=== PATIENT | female | born 1990 | race Caucasian/White ===

== ENCOUNTER 2025-04-27 08:42 | Outpatient (RCR) | payer BC, SELFPAY | END 2025-04-27 09:02 | disposition home or self-care (01) | LOC: HO.PHPA 08:42 | PROVIDERS: Visit Provider Psychiatry & Neurology Psychiatry | DX: F31.9 Bipolar disorder, unspecified (principal) ==

== ENCOUNTER 2025-05-11 08:20 | Outpatient (REF) | payer BC, SELFPAY ==
--- OUTSIDE RECORDS SUMMARY | 2025-04-17 07:00 | XMS_ITS ---
Author Organization [address] [id number] Care Team Providers Care Conveyor Maintenance Mechanic Name Role Phone Basim Loving Unavailable [phone] REASON FOR VISIT establish Encounters Encounter Location Date Provider Diagnosis [address] [id number] 04/17/2025 Basim Loving Plan Of Treatment No Information Progress Notes * Cortney PARSONSDOB: [birth year] (34 yo F)Acc No.[id number]:04/17/2025 Progress Notes Patient: Vandana EYN Cortney Provider: Lizbeth Loving ND :1990 A ge:34 Y S ex:Female Date:04/17/2025 Phone: Address:[address] [place], [place] [id number] Subjective: * Chief Complaints: * 1 . Establish. * Medical History: Objective: * Vitals: Assessment: Plan: * Treatment: * * Electronic signature of Artem Loving ND on 05/11/2025 at 08:38 AM EST Sign off status: Pending * Provider: Lizbeth Loving ND Date: 06/17/2024 Generated for Lauren lopez/Natanael/Mary on: 07/12/2024 08:38 AM EST
--- NOTE | 2025-05-11 08:26 | ECG_ITS ---
Test Reason : qtc check Blood Pressure : */* mmHG Vent. Rate : 79 BPM Atrial Rate : 79 BPM P-R Int : 150 ms QRS Dur : 80 ms QT Int : 382 ms P-R-T Axes : 58 45 38 degrees QTcB Int : 438 ms Normal sinus rhythm Normal ECG No previous ECGs available Referred By: Aylin Delgadillo Electronically Signed By: Hernandez Shaikh
--- OUTSIDE RECORDS SUMMARY | 2025-05-11 08:38 | XMS_ITS | Patient Health Record ---
Author Organization [facility] [address] [place], [place] [phone] Care Team Providers Care Cane Flume Watcher Name Role Phone Basim Loving Unavailable [phone] Mesha Briones Unavailable [phone] Reason For Referral No Information Encounters Encounter Location Date Provider Diagnosis [address] [id number] 02/07/2025 Mesha Briones Plan Of Treatment No Information Insurance Providers Payer Name Payer Address Payer Phone Subscriber Number Group Number Insured Name Patient Relationship to Insured Coverage Start Date Coverage End Date [facility] [address] [place], [place] [phone] [id number] Jenise Carlos Self - patient is the insured
[2025-05-11 08:52] LABS: MANUAL DIFF FLAG NO
[2025-05-11 09:10] LABS: Hematocrit 41.8 % (37.0-47.0); Hemoglobin 14.2 g/dl (12.0-16.0); Imm Gran Abs Auto 0.02 X10*3/uL (0.00-0.03); Imm Gran Pct Auto 0.4 % (0.0-0.4); Lymphocytes Absolute Auto 1.2 X10*3/uL (1.2-4.9); Mean Corpuscular HGB Conc 34.0 g/dl (31.0-35.0); Mean Corpuscular Hemoglobin 31.3 pg (27.0-33.0); Mean Corpuscular Volume 92.1 fL (80.0-98.0); NRBC Abs Auto 0.000 X10*3/uL (0.0-0.012); NRBC Pct Auto 0.0 /100WBC (0.0-0.2); Platelet Count 320 X10*3/uL (160-400); Red Blood Count 4.54 X10*6/uL (4.20-5.50); White Blood Count 5.3 X10*3/uL (4.8-10.8)
[2025-05-11 10:00] LABS: Alanine Aminotransferase 17 U/L (0-31); Albumin Level 4.2 g/dL (3.5-5.0); Alkaline Phosphatase 72 U/L (39-117); Anion Gap 10 (12-20); Aspartate Amino Transferase 21 U/L (5-31); Blood Urea Nitrogen 10 mg/dL (9-16); Calcium 8.9 mg/dL (8.4-10.2); Carbon Dioxide 24 mmol/L (22-29); Chloride 109 mmol/L (96-108); Estimated Glomerular Filt Rate > 60; Iron 90 mcg/dL (30-160); Magnesium 2.0 mg/dL (1.6-2.6); Percent Iron Saturation 29 % (15-50); Potassium 4.0 mmol/L (3.3-5.1); Sodium 139 mmol/L (135-145); Total Iron Binding Capacity 315 mcg/dL (228-428); Total Protein 6.8 g/dL (6.5-8.0); Unsaturated Iron Binding 225 ug/dL
[2025-05-11 10:07] LABS: Lithium 0.56 mmol/L (0.60-1.20)
[2025-05-11 10:17] LABS: Free T4 (Free Thyroxine) 0.82 ng/dL (0.71-1.85); Thyroid Stimulating Hormone 1.20 uIU/mL (0.32-4.0)
[2025-05-11 10:42] LABS: Folate 12.5 ng/mL (> or = 4.0); Vitamin B12 615 pg/mL (200-900)
== END 2025-05-11 08:21 | disposition home or self-care (01) ==
LOC: HO.LAB 08:20
PROVIDERS: Visit Provider Psychiatry & Neurology Psychiatry
DX: F39 Unspecified mood [affective] disorder (principal); Z13.1 Encounter for screening for diabetes mellitus; Z13.0 Encounter for screening for diseases of the blood and blood-forming organs and certain disorders involving the immune mechanism; Z13.6 Encounter for screening for cardiovascular disorders; Z13.21 Encounter for screening for nutritional disorder
CPT/HCPCS: 36415; 80053; 80178; 82306; 82607; 82746; 83036; 83090; 83540; 83735; 84425; 84439; 84443; 85025; 93005

== ENCOUNTER → 2025-05-11 08:26 | Outpatient (BNV) | payer BC, SELFPAY | PROVIDERS: Visit Provider Internal Medicine Cardiovascular Disease | DX: Z13.6 Encounter for screening for cardiovascular disorders (principal) | CPT/HCPCS: 93010 ==

== ENCOUNTER 2025-05-12 15:18 | Outpatient (REF) | payer BC, SELFPAY ==
--- OUTSIDE RECORDS SUMMARY | 2025-04-17 07:00 | XMS_ITS ---
Author Organization [address] [id number] Care Team Providers Care Manager Community Outreach Name Role Phone Basim Loving Unavailable [phone] REASON FOR VISIT establish Encounters Encounter Location Date Provider Diagnosis [address] [id number] 04/17/2025 Basim Loving Plan Of Treatment No Information Progress Notes * Cortney PARSONSDOB: [birth year] (34 yo F)Acc No.[id number]:04/17/2025 Progress Notes Patient: Vandana YEN Cortney Provider: Lizbeth Loving ND :1990 A ge:34 Y S ex:Female Date:04/17/2025 Address:[address] [place], [place] [id number] Subjective: * Chief Complaints: * 1 . Establish. * Medical History: Objective: * Vitals: Assessment: Plan: * Treatment: * * Electronic signature of Artem Loving ND on 05/12/2025 at 04:27 PM EST Sign off status: Pending * Provider: Lizbeth Loving ND Date: 06/17/2024 Generated for Lauren lopez/Natanael/Mary on: 07/13/2024 04:27 PM EST
[2025-05-12 15:21] LABS: UPreg QC Valid YES
--- OUTSIDE RECORDS SUMMARY | 2025-05-12 16:27 | XMS_ITS | Patient Health Record ---
Author Organization [facility] [address] [place], [place] [phone] Care Team Providers Care Fish Agent Name Role Phone Basim Loving Unavailable [phone] Mesha Briones Unavailable [phone] Reason For Referral No Information Encounters Encounter Location Date Provider Diagnosis [address] [id number] 02/07/2025 Mesha Briones Plan Of Treatment No Information Insurance Providers Payer Name Payer Address Payer Phone Subscriber Number Group Number Insured Name Patient Relationship to Insured Coverage Start Date Coverage End Date [facility] [address] [place], [place] [phone] [id number] Cortney Carlos Self - patient is the insured
--- OUTSIDE RECORDS SUMMARY | 2025-05-12 16:27 | XMS_ITS | Clinical Summary ---
Author Organization [facility] Address [address] [facility] [address] [place] [address] Phone Care Team Providers Care Wage Hand Name Role Phone Pcp, Unknown Primary Care Provider Unavailabl e Allergies Active Allergy Reactions Criticality Noted Date Comments Haloperidol 04/03/2025 Nsaids (Non-Steroidal Anti-I nflammatory Drug) 04/03/2025 Medications clonazePAM (KLONOPIN) 1 MG tablet Take 2 mg by mouth daily. Taking two 1 mg tablets daily 02/07/2025 Active venlafaxine (EFFEXOR-XR) 37.5 MG 24 hr capsule Take 1 capsule by mouth every morning. 02/27/2025 Active lithium carbonate 600 mg capsule Take 1,200 mg by mouth nightly at bedtime. Taking two capsules 1200 mg total nightly 02/21/2025 Active lithium carbonate 300 mg tablet Take 600 mg by mouth nightly at bedtime. 03/11/2025 Active Active Problems Problem Noted Date Diagnosed Date Mental health problem 04/03/2025 Encounters Date Type Department Care Team Description 04/03/2025 2:43 PM EST - 04/05/2025 1:12 PM EST Hospital Encounter [facility] [address] [place] [address] Keo Dong MD Steinberg, MD Nati Prakash, MD Bong Cedillo, MD Duncan Mccann Olyn Amanda, MD Noone, Caleb J, MD Discharge Disposition: [facility] from Last 3 Months Social History Tobacco Use Types Packs/Day Years Used Date Smoking Tobacco: Never Assessed Education Answer Date Recorded Are you interested in more education? Not on libby e 04/03/2025 Are you concerned about learning? Not on file 04/03/2025 No 04/03/2025 No 04/03/2025 Digital Access Answer Date Recorded No 04/03/2025 No 04/03/2025 Reliable internet access at home? Not on file 04/03/2025 Device with a working camera? Not on file Intimate Partner Violence Answer Date R ecorded Are you denied basic needs s uch as food, clothing, or medical care? Deferred 04/03/2025 In the past 12 months have y ou been in a relationship with a person who hurts, threatens, or tries to control you? Deferred 04/03/2025 Are you denied basic needs s uch as food, clothing, or medical care? Deferred 04/03/2025 In the past 12 months have y ou been in a relationship with a person who hurts, threatens, or tries to control you? Deferred 04/03/2025 Comments Unknown Sex and Gender Information Value Date Recorded Sex Assigned at Not on file Legal Sex Female 2:40 PM EST Gender Identity Not on file Sexual Orientation Not on file Last Filed Vital Signs Vital Sign Reading Time Taken Comments Blood Pressure 114/75 04/05/2025 8:51 AM EST Pulse 66 04/05/2025 8:51 AM EST Temperature 36.6 C (97.9 F) 04/05/2025 8:51 AM EST Respiratory Rate 17 04/05/2025 8:51 AM EST Oxygen Saturation 99% 04/05/2025 8:51 AM EST Inhaled Oxygen Concentration - - Weight - - Height - - Body Mass Index - - Plan of Treatment Health Maintenance Due Date Last Done Comments Adult Td,Tdap Booster 1991 TSH LEVEL 1991 DEPRESSION SCREENING 2003 SMOKING Hx and SMOKELESS TOB ACCO SCREENING 2004 HEPATITIS C SCREENING 2009 HIV ONE-TIME SCREENING (18-6 5 YEARS) 2009 PAP SMEAR 2012 INFLUENZA VACCINE (#1) 2024 COVID-19 VACCINE ( - 2024-2 6 season) 2025 CREATININE LEVEL 04/03/2026 04/03/2025 LITHIUM LEVEL 04/03/2026 04/03/2025 HEPATITIS A VACCINES Aged Out No long er eligible based on patient's age to complete this topic HIB VACCINES Aged Out No longer eligi ble based on patient's age to complete this topic MENINGOCOCCAL VACCINES (ACWY) Aged Out No longer eligible based on patient's age to complete this topic MENINGOCOCCAL VACCINES (B) Aged Out N o longer eligible based on patient's age to complete this topic PNEUMOCOCCAL VACCINES (0-49 years) Aged Out No longer eligible based on patient's age to complete this topic Medical Devices Not on file Procedures Procedure Name Priority Date/Time Associated Diagnosis Comments CBC AND DIFFERENTIAL STAT 04/03/2025 4:41 PM EST ACETAMINOPHEN LEVEL STAT 04/03/2025 4 :41 PM EST SALICYLATES STAT 04/03/2025 4:41 PM EST LITHIUM LEVEL STAT 04/03/2025 4:41 PM EST HCG, SERUM QUALITATIVE STAT 4:41 PM EST ETHANOL, BLOOD STAT 04/03/2025 4:41 PM EST LFTS (HEPATIC PANEL) STAT 04/03/2025 4:41 PM EST BASIC METABOLIC PANEL (BMP) STAT 04/03/2025 4:41 PM EST CBC AND DIFFERENTIAL STAT 04/03/2025 4:41 PM EST TOXICOLOGY SCREEN, URINE STAT 04/03/2025 4:27 PM EST from Last 3 Months Results * Ethanol, Blood (04/03/2025 4:41 PM EST) Ethanol <10 Negative; <11 mg/dL 04/03/2025 5:25 PM EST [facility] Blood (Blood) Venipuncture / Unknown 04/03/2025 4:41 PM EST 04/03/2025 4:50 PM EST us Beth Song MD LAB BLOOD BKR ORDERABLES Final Result [address] [address] * Human Chorionic Gonadotropin (HCG), Qualitative, Blood (04/03/2025 4:41 PM EST) Pathologist [facility] hCG Qualitative Negative Negative 6:16 PM [facility] Blood (Blood) Venipuncture / Unknown 04/03/2025 4:41 PM EST 04/03/2025 4:50 PM EST Beth Song MD LAB BLOOD BKR ORDERABLES Final Result Performing Organization Address [facility]/ZIP Co de Phone Number [address] [address] * (ABNORMAL) CBC and Differential (04/03/2025 4:41 PM EST) [facility] WBC 10.59 4.00 - 11.00 K/uL 04/03/2025 4:58 PM [facility] RBC 4.27 4.00 - 5.20 M/uL 04/03/2025 4:58 PM [facility] Hemoglobin 13.7 12.0 - 16.0 g/dL 04/03/2025 4:58 PM [facility] Hematocrit 38.5 36.0 - 46.0 % 04/03/2025 4:58 PM [facility] MCV 90.2 80.0 - 100.0 fL 04/03/2025 4:58 PM [facility] MCH 32.1(H) 27.0 - 31.0 pg 04/03/2025 4:58 PM [facility] MCHC 35.6 32.0 - 36.0 g/dL 04/03/2025 4:58 PM [facility] MPV 9.6 8.4 - 12.0 fL 04/03/2025 4:58 PM [facility] RDW-CV 12.0 11.5 - 14.5 % 04/03/2025 4:58 PM [facility] PLT 375 150 - 450 K/uL 04/03/2025 4:58 PM [facility] Neutrophils 71.0 % 04/03/2025 4:58 PM [facility] Lymphocytes 20.5 % 04/03/2025 4:58 PM [facility] Monocytes 7.3 % 04/03/2025 4:58 PM [facility] Eosinophils 0.4 % 04/03/2025 4:58 PM [facility] Basophils 0.5 % 04/03/2025 4:58 PM [facility] Imm Grans 0.3 % 04/03/2025 4:58 PM [facility] NRBC 0.0 <=0.0 /100 WBCs 04/03/2025 4:58 PM [facility] Absolute Neutrophils 7.53 1.92 - 7.60 K/uL 04/03/2025 4:58 PM [facility] Absolute Lymphocytes 2.17 0.72 - 4.10 K/uL 04/03/2025 4:58 PM [facility] Absolute Monocytes 0.77 0.16 - 1.10 K/uL 04/03/2025 4:58 PM [facility] Absolute Eosinophils 0.04 0.00 - 0.50 K/uL 04/03/2025 4:58 PM [facility] Absolute Basophils 0.05 0.00 - 0.15 K/uL 04/03/2025 4:58 PM [facility] Absolute Imm Grans 0.03 0.00 - 0.09 K/uL 04/03/2025 4:58 PM [facility] Absolute NRBC 0.00 <=0.00 K cells/uL 04/03/2025 4:58 PM [facility] Absolute Neutrophils 7.53 1.92 - 7.60 K/uL 04/03/2025 4:58 PM [facility] Comment:Automated cell count . Manual ANC may differ if performed. Diff Type Auto 04/03/2025 4:58 PM [facility] Blood (Blood) Venipuncture / Unknown 04/03/2025 4:41 PM EST 04/03/2025 4:50 PM EST us Beth Song MD LAB BLOOD BKR ORDERABLES Final Result [address] [address] * Hepatic Panel (LFTs) (04/03/2025 4:41 PM EST) AST 25 <33 U/L 04/03/2025 5:25 PM EST [facility] ALT 18 <34 U/L 04/03/2025 5:25 PM [facility] Alkaline Phosphatase 68 40 - 130 U/L 04/03/2025 5:25 PM [facility] Bilirubin, Total 0.6 0.0 - 1.2 mg/dL 04/03/2025 5:25 PM [facility] Bilirubin, Direct 0.2 0.0 - 0.3 mg/dL 04/03/2025 5:25 PM [facility] Total Protein 7.0 6.4 - 8.3 g/dL 04/03/2025 5:25 PM [facility] Albumin 4.1 3.5 - 5.2 g/dL 04/03/2025 5:25 PM [facility] Globulin 2.9 1.9 - 4.1 g/dL 04/03/2025 5:25 PM [facility] Blood (Blood) Venipuncture / Unknown 04/03/2025 4:41 PM EST 04/03/2025 4:50 PM EST us Beth Song MD LAB BLOOD BKR ORDERABLES Final Result [address] [address] * Acetaminophen Level (04/03/2025 4:41 PM EST) Acetaminophen <5.0 <=25.0 ug/mL 04/03/2025 5:35 PM EST [facility] Blood (Blood) Venipuncture / Unknown 04/03/2025 4:41 PM EST 04/03/2025 4:50 PM EST us Beth Song MD LAB BLOOD BKR ORDERABLES Final Result Performing Organization Address [facility]/ZIP Co de Phone Number [address] [address] * (ABNORMAL) Salicylates (04/03/2025 4:41 PM EST) Salicylates <0.3(L) 10.0 - 25.0 mg/dL 04/03/2025 5:36 PM EST [facility] Blood (Blood) Venipuncture / Unknown 04/03/2025 4:41 PM EST 04/03/2025 4:50 PM EST us Beth Song MD LAB BLOOD BKR ORDERABLES Final Result Performing Organization Address [facility]/ZIP Co de Phone Number [address] [address] * Sunman Level (04/03/2025 4:41 PM EST) Sunman 0.56 0.50 - 1.20 mmol/L 04/03/2025 5:40 PM EST [facility] Blood (Blood) Venipuncture / Unknown 04/03/2025 4:41 PM EST 04/03/2025 4:50 PM EST us Beth Song MD LAB BLOOD BKR ORDERABLES Final Result Performing Organization Address [facility]/ZIP Co de Phone Number [address] [address] * (ABNORMAL) Basic Metabolic Panel (BMP) (04/03/2025 4:41 PM EST) Sodium 140 136 - 145 mmol/L 04/03/2025 5:25 PM EST [facility] Potassium 3.7 3.4 - 5.1 mmol/L 04/03/2025 5:25 PM [facility] Chloride 103 98 - 107 mmol/L 04/03/2025 5:25 PM [facility] CO2 21 20 - 31 mmol/L 04/03/2025 5:25 PM [facility] Anion Gap 16 3 - 17 mmol/L 04/03/2025 5:25 PM [facility] BUN 13 6 - 23 mg/dL 04/03/2025 5:25 PM [facility] Creatinine 0.70 0.50 - 1.00 mg/dL 04/03/2025 5:25 PM [facility] eGFR 117 >59 mL/min/1.7 3m2 04/03/2025 5:25 PM [facility] Comment:Estimated glomerular filtration rate calculated using the CKD-EPI refit equation. Glucose 113(H) 70 - 99 mg/dL 04/03/2025 5:25 PM [facility] Calcium 9.5 8.5 - 10.5 mg/dL 04/03/2025 5:25 PM [facility] Blood (Blood) Venipuncture / Unknown 04/03/2025 4:41 PM EST 04/03/2025 4:50 PM EST us Beth Song MD LAB BLOOD BKR ORDERABLES Final Result [facility] [address] [place] [address] * Toxicology Screen, Urine (04/03/2025 4:27 PM EST) [facility] Amphetamines, Urine Negative Negative 04/03/2025 5:07 PM [facility] Benzodiazepine , Urine Negative Negative 04/03/2025 5:07 PM [facility] Cocaine Metabolite, Urine Negative Negative 04/03/2025 5:07 PM [facility] Opiates, Urine Negative Negative 04/03/2025 5:07 PM [facility] Oxycodone, Urine Negative Negative 04/03/2025 5:07 PM [facility] Fentanyl, Urine Negative Negative 04/03/2025 5:07 PM [facility] Creatinine, Urine 97 20 - 300 mg/dL 04/03/2025 5:07 PM EST [facility] Urine (Urine, Voided) Non-Blood Collection / Unknown 04/03/2025 4:27 PM EST 04/03/2025 4:36 PM EST Narrative [facility] - 04/03/2025 5:07 PM EST This screening test was performed by immunoassay methodology, which may occasionally yield false-negative or false-positive results. Confirmatory testing can be requested if a definitive result is needed. Results are to be used only for medical (ie, treatment) purposes. Unconfirmed screening results must not be used for non-medical purposes (eg, employment testing). Beth Song MD LAB URINE ORDERABLES Fabby mon Result Performing Organization Address City/State/[facility] Co de Phone Number [facility] [address] [place] [address] from Last 3 Months Insurance [facility] PPO Member Subscriber Plan / Payer (Ef fective 2024-Present) Name:Jenise Carlos Member ID:[id number] Relation to Subscriber:Spouse Name:Tj Farias Subscriber ID:[id number] Date of :1899 (Home) Address: [address] [place] [id number] Payer ID:[id number] (NAIC) Type:PPO Address: [facility] [id number] [place] [address] [facility] [place] [address] [address] [address] [facility] PPO Member Subscriber Plan / Payer (Ef fective 2024-Present) Name:Jenise Carlos Member ID:[id number] Relation to Subscriber:Spouse Name:Tj Farias Subscriber ID:[id number] Date of :1899 (Home) Address: [address] [place] [address] Payer ID:[id number] (NAIC) Type:PPO Address: [address] [place] [address] [facility] PPO BLUE CROSS OUT OF STATE PPO [employer] OUT OF STATE PPO Care Teams Wage Hand Relationship Specialty Start Date End Date Pcp, Unknown PCP - General 04/03/25 Additional Source Comments The information contained in this document represents components of the legal health record. It is not the complete legal health record.[facility]
== END 2025-05-12 15:19 | disposition home or self-care (01) ==
LOC: HO.LNP 15:18
PROVIDERS: Visit Provider Psychiatry & Neurology Psychiatry
DX: Z32.00 Encounter for pregnancy test, result unknown (principal)
CPT/HCPCS: 81025

== ENCOUNTER → 2025-05-15 10:00 | Outpatient (BNV) | payer BC, SELFPAY | PROVIDERS: Visit Provider Psychiatry & Neurology Psychiatry | DX: F31.77 Bipolar disorder, in partial remission, most recent episode mixed (principal) | CPT/HCPCS: 90792; 99213; 99214; 99499 ==

== ENCOUNTER 2025-05-22 09:15 | Outpatient (RCR) | payer BC, SELFPAY ==
[2025-05-02 13:09] VITALS: BMI 23.7
[2025-05-02 13:10] VITALS: BP 94/60; PULSE 76; TEMP 37
--- NOTE | 2025-05-02 13:48 | PC.ADMIT ---
Patient is a 34 year old female who is currently going through a divorce from her of 7 years. She reports they have been together for total of 13 years. Patient was referred to [facility] by [facility] where she was admitted from 04/05-04/18. According to Integrative Assessment patient at the time presented with erratic and disorganized thoughts and behaviors and was experiencing passive SI. Patient reports to this marketing underwriter that she spiraled again and was experiencing lack of sleep, rage, and anxiety. Patient reports history of inpatient LOC hospitalizations in addition to most recent hospitalization. Patient reports she has been unemployed for over a year as she stated her asked her to take some time off from work to work on her mental health. Patient identified supports stating, My family and my close friends. I asked patient what happened prior to hospitalization. Patient stated, Rage. I was yelling, screaming, writing on things. I was not in a good place and took the separation really hard. My parents couldn't take it. I tried to run away a couple of times. Patient is alert and oriented x4. She is calm and cooperative. She presented with anxious mood and affect. She denied SI, no HI. She was given a copy of her safety plan if needed. Medications updated with patient and patient's discharge paperwork from [facility]. Patient reports she is taking medications as prescribed. Patient denied any current or past history of using any substance including alcohol.
--- NOTE | 2025-05-04 14:52 | HO.PHP ---
Pt's case has been opened and reviewed in treatment team.
--- NOTE | 2025-05-04 23:05 | HO.PS.ADMBH ---
HPI Date of Service: 05/04/25 Chief Complaint: bipolar Sources of Information: patient interviewed, chart reviewed and crisis/core team assessment reviewed HPI Narrative: Patient is a recently 35 yo female with history of psychotic episodes, mood instability, depression, catatonia, who was referred to PHP as a step down from IPLOC at [facility] after a 13 days admission for psychosis, presenting with disorganized thoughts and erratic behaviors and making suicidal statements in the context of going through a divorce and was spiralling. Patient has a history of Schizoaffective and bipolar disorder diagnoses per documentation. Today patient presents as calm, composed, although oddly related and highly groomed with heavy make-up and bright clothing. She reports doing better and attributes presentation to spiraling and having a mental break . She notes that she doesnt like the Bipolar diagnosis and adds that she does not agree with this. (She does not acknowledge schizoaffective disorder dx). I think I overextended myself and I hit a breaking point, like everyone else does. I'm just a human . She also reports added stress because I dont do well being alone. We were for 7 yrs, it was really heartbreaking. I think it's because of my mental health issues he left . She notes a history of Catatonia in summer of 2024, I stayed up for 8 or 9 days... I dont remember anything, lot of black out . Patient is on lithium 900 mg qhs, olanzapine 10 mg qhs, hydroxyzine 50 mg prn. She reports taking her medication daily, but says it is her goal to eventually get off medication. Complains of emotional blunting She asks about lowering dose but for now I suggest we allow her time to settle in, see how she is doing over the course of her stay, get lab work and gather collateral info. Denies any alcohol or substance use. Denies any SI, HI, AH, VH. No evidence of psychosis. POssible early hypomania, or may be just anxious. Past Psychiatric History: IPLOC x5 since 2021 Previous PHP and CHR in 2021 No prior detox/rehab admissions SA: denies SIB: denies Aggression or antisocial behaviors: denies Psychiatrist: Liz Fitzgerald PMHNP-BC Therapist: Anneliese Pérez LPC PCP: Jessica Hall APRN Previous trials: [place], olanzapine, hydroxyzine, Abilify, Wellbutrin, Caplyta, Vraylar, Lamictal, trazodone, Seroquel, Klonopin, Ativan, Haldol she has not allergy [facility] Medical History (Updated 05/04/25 @ 23:35 by Aylin Delgadillo MD) No known health problems Diagnostics Vital Signs (24Hr): BMI result Body Mass Index 23.7 Meds/Allergies Allergies Allergies Allergy/AdvReac Type Severity Reaction Status Date / Time ibuprofen (From Motrin) Allergy Face Verified 05/02/25 13:09 puffiness, anaphylaxis haloperidol (From Haldol) AdvReac Mild Slurring Verified 05/02/25 13:09 words, black out. Mental Status Exam Mental Status Exam Narrative: Alert, oriented, in no acute distress. Highly groomed/ hygiene intact. Trendy clothes, bright colors. Calm, cooperative, engaged. No psychomotor agitation or neurovegetative retardation. Eye contact maintained. Mood depressed, affect constricted. Speech increasingly more talkative and more rapid speech, slightly pressured byt redirectable and maintains reciprocity. . Thought process circumstantial, tangential. Thought content related to stressors,denies SI or HI. No paranoia or delusional content elicited. No evidence of psychosis. Insight limited and judgment fair but adequate. Assessment & Plan Assessment & Plan (1) Bipolar disorder, in partial remission, most recent episode mixed: Status: Acute Code(s): F31.77 - Bipolar disorder, in partial remission, most recent episode mixed Plan Admit to [facility] VS reviewed on admission: afebrile, BP 94/60;?76 bpm continue regular medications for now Routine lab work as indicated EKG, routine for baseline QTc for medication considerations as indicated UDS as indicated [facility] reviewed Continue to monitor as per protocol Patient educated on: diagnosis and medication risk/benefits Informed Consent: understands Reason for continued partial hosp. stay Substantial Risk for: rapid decompensation and med/psych decompensation Certification I certify that partial hospital treatment is medically necessary due to the symptoms and problems resulting from the patient's mental illness and the failure to treat the patient at the partial hospital level of care would likely result in the patient requiring inpatient psychiatric care which could not be prevented at a less intensive level of care. Time Spent With Patient Time: Total time managing care of this patient today __90__ minutes.
--- NOTE | 2025-05-12 13:49 | HO.PHP ---
This insurance underwriter sales spoke with Jenise's mother Yoly , in which there is a release on record. Yoly stated that she is worried about Jenise discharging prematurely and asked if information be given to her mother to help her navigate her aftercare planning. Jenise is getting which may cause issues with her [place] based insurance. However, her mother believes that the jd edwards developer stated that it can be extended up to a year, she is looking into confirming this. Yoly also told this insurance underwriter sales that she had reached out to Jenise's therapist Anneliese Pérez LPC in making an apt to meet post PHP. Jenise received labs and will hopefully resume with Liz Fitzgerald for medication management to reach therapeutic levels on her [place]. Jenise will be extended for PHP LOC until 05/22 due to this. Pt was made aware and appeared receptive.
--- NOTE | 2025-05-15 23:35 | P.PNPSP_ITS ---
Subjective Subjective Date of Service: 05/12/25 Reason For Visit: bipolar Interim History: Patient continues to complain about lithium, feeling dried out and gross , some nausea and just not liking how I feel . Feels her mood is not great despite all this lithium . It is noted that it seem she is on only instant release lithium (vs CR or ER) but taking meds only once daily. Technincally should be BID dosing. I suggest we could move some of the lithium from IR to ER and may allow for us to lower dose if only because she has been taking IR only once daily at bedtime, which means she is relatively stable even during the day despite not taking an AM dose of IR. Sleeping well, denies SI. Denies any manic symptoms, alhtough is still quite talkative. Medication Compliance: Yes Side effects from medications: No Attending Groups: Yes Review of Systems Acute medical concerns: No Mental Status Exam Mental Status Exam Narrative: Alert, oriented, in no acute distress. Highly groomed/ hygiene intact. Trendy clothes, bright colors. Calm, cooperative, engaged. No psychomotor agitation or neurovegetative retardation. Eye contact maintained. Mood depressed, affect constricted. Speech increasingly more talkative and more rapid speech, slightly pressured byt redirectable and maintains reciprocity. . Thought process circumstantial, tangential. Thought content related to stressors,denies SI or HI. No paranoia or delusional content elicited. No evidence of psychosis. Insight limited and judgment fair but adequate. Diagnostics Vital Signs (24Hr): BMI result Body Mass Index 23.7 Assessment & Plan Assessment & Plan (1) Bipolar disorder, in partial remission, most recent episode mixed: Status: Acute Code(s): F31.77 - Bipolar disorder, in partial remission, most recent episode mixed Plan continue PHP start lithium ER 450 mg qhs continue lithium IR as 300 mg qhs (total combined 750 mg, down from IR 900 mg) continue regular medications for now Routine lab work was reviewed with patient (lithium level 0.56 from yesterday, renal fxn wnl, no other signifianct findings) EKG, routine for baseline QTc for medication considerations as indicated UDS as indicated VS reviewed on admission: afebrile, BP 94/60;?76 bpm Continue to monitor Patient educated on: diagnosis and medication risk/benefits Informed Consent: understands Reason for contiued partial hosp. stay Substantial Risk for: inability to function and med/psych decompensation Certification I certify that partial hospital treatment is medically necessary due to the symptoms and problems resulting from the patient's mental illness and the failure to treat the patient at the partial hospital level of care would likely result in the patient requiring inpatient psychiatric care which could not be prevented at a less intensive level of care. Total time managing care of this patient today _30___ minutes. Discharge Plan Discharge Attending provider: Aylin Delgadillo Medications: New lithium carbonate 300 mg tablet extended release 300 mg PO BEDTIME Qty: 30 0RF Continued lithium carbonate 450 mg tablet extended release 450 mg PO BEDTIME Qty: 30 0RF olanzapine 10 mg tablet 10 mg PO BEDTIME Qty: 30 0RF hydroxyzine HCl 50 mg tablet 50 mg PO Q6H PRN (Reason: anxiety) Qty: 30 0RF Discontinued lithium carbonate 300 mg capsule 900 mg PO BEDTIME Stand Alone Forms: Patient Portal Discharge page Patient Education: Bipolar Disorder (DC) Print Language: Mozambican
--- NOTE | 2025-05-19 14:34 | HO.PHP ---
At roughly 12:30pm this commercial insurance underwriter attempted to contact Yatahey since pt called out again today, resulting in a total of 4 absences. After consulting with [facility] supervisor covering and lining, Jenise will not be discharged today as per policy (due to absences) but will be encouraged to come in Thursday to attend groups and meet with [facility] provider and clinician and determine discharge at that point. This commercial insurance underwriter called the phone number listed in Yatahey's chart, however pt's mother answered and stated Jenise was sleeping. Yoly Carlos (pt's mother) stated Jenise was sick with stomach pain and nausea that started overnight, stated Jenise believes she may have a stomach bug. Yoly was encouraged to bring Jenise to urgent care or contact her provider or medical help should her symptoms worsen or continue. Jenise's mother agreed. This commercial insurance underwriter also asked Yoly to inform Yatahey to contact [facility] if she will not be in on Thursday and to please try not to miss further days. Pt's mother expressed appreciation and support for Yatahey's engagement in [facility]. (A CHATA is located in Yatahey's chart for her mother Yoly Carlos).
--- NOTE | 2025-05-21 20:01 | PM.EVENT ---
Event Note Date of Service: 05/19/25 Event Note: Patient was not seen for follow-up due to calling out of program today. Time Spent With Patient Time: Total time managing care of this patient today ____ minutes.
--- NOTE | 2025-05-22 12:10 | P.PNPSP_ITS ---
Subjective Subjective Date of Service: 05/22/25 Reason For Visit: bipolar Interim History: Patient seen for follow-up, anticipating discharge at the end of program today.? Reports no acute issues or concerns. Medication compliant, medications well- tolerated. Denies any adverse effects.? Mood is stable.? Denies any hopelessness or SI. Denies thoughts of harming self or others at this time. Denies any aggressive ideation or HI. Denies any paranoia or AH or VH. Sleep, appetite, energy stable. Medication Compliance: Yes Side effects from medications: No Attending Groups: Yes Review of Systems Acute medical concerns: No Mental Status Exam Mental Status Exam Narrative: Alert, oriented, in no acute distress. Calm, cooperative. Mood stable, affect appropriate. Speech normal. Thought process linear, coherent, more goal- directed. Thought content related to stressors, future-oriented, denies any helplessness, hopelessness or SI.? No aggressive ideation or HI. No paranoia or delusional content elicited. No evidence of psychosis. Insight and judgment fair-good. Diagnostics Vital Signs (24Hr): BMI result Body Mass Index 23.7 Assessment & Plan Assessment & Plan (1) Bipolar disorder, in partial remission, most recent episode mixed: Status: Acute Code(s): F31.77 - Bipolar disorder, in partial remission, most recent episode mixed Plan [facility] Continue regular medications? Refills sent to pharmacy Will defer further medication management to outpatient provider *Safety plan reviewed *Discharge diagnoses, treatment course, discharge plan have been reviewed with patient (including medication regime, medication management, potential side effects) as well as treatment rationale were also revisited *Discharge paperwork signed and given to patient, copy sent for scanning to chart Patient educated on: diagnosis and medication risk/benefits Informed Consent: understands Reason for contiued partial hosp. stay Substantial Risk for: med/psych decompensation Certification I certify that partial hospital treatment is medically necessary due to the symptoms and problems resulting from the patient's mental illness and the failure to treat the patient at the partial hospital level of care would likely result in the patient requiring inpatient psychiatric care which could not be prevented at a less intensive level of care. Total time managing care of this patient today __30__ minutes. Discharge Plan Discharge Attending provider: Aylin Delgadillo Medications: New lithium carbonate 300 mg tablet extended release 300 mg PO BEDTIME Qty: 30 0RF Continued lithium carbonate 450 mg tablet extended release 450 mg PO BEDTIME Qty: 30 0RF olanzapine 10 mg tablet 10 mg PO BEDTIME Qty: 30 0RF hydroxyzine HCl 50 mg tablet 50 mg PO Q6H PRN (Reason: anxiety) Qty: 30 0RF Discontinued lithium carbonate 300 mg capsule 900 mg PO BEDTIME Stand Alone Forms: Patient Portal Discharge page Patient Education: Bipolar Disorder (DC) Print Language: Khmer
== END 2025-05-22 23:59 | disposition home or self-care (01) ==
LOC: HO.PHPA 09:15
PROVIDERS: Visit Provider Psychiatry & Neurology Psychiatry
DX: F31.77 Bipolar disorder, in partial remission, most recent episode mixed (principal); Z79.899 Other long term (current) drug therapy; Z63.5 Disruption of family by separation and divorce
CPT/HCPCS: 90791; 90853